=== PATIENT | female | born 1955 | race Caucasian/White ===

== ENCOUNTER 2016-11-24 17:49 | Outpatient (CLI) ==
[2016-04-05 14:20] VITALS: BMI 30.9
--- NOTE | 2016-11-25 08:02 | DI ---
EXAM: Radiographs, right foot HISTORY: Right foot pain. COMPARISON: None available. TECHNIQUE: Three views. FINDINGS: Bone mineralization is normal. There is no fracture or dislocation. The joint spaces ar e maintained although there is mild spurring at the talonavicular, fourth tarsal metatarsal and firs t metatarsal phalangeal joints. Moderate spurring seen off the calcaneus at the Achilles tendon ins ertion and plantar aponeurosis. No focal soft tissue abnormality is seen. IMPRESSION: 1. Mild osteoarthritis. 2. Moderate calcaneal spurs.
--- NOTE | 2016-11-25 08:07 | CT ---
EXAM: CT chest without contrast. HISTORY: Pleurodynia. COMPARISON: Chest radiograph 08/24/2012. TECHNIQUE: Multiple axial images of the chest were obtained without intravenous contrast. Images w ere reformatted in the sagittal and coronal planes. FINDINGS: Evaluation for lymphadenopathy is limited by lack of intravenous contrast. There are khuhsi cified mediastinal and hilar lymph nodes present. Calcified right thyroid nodule noted. Heart size is normal. Trace amount pericardial fluid may be present. Atherosclerotic calcifications noted in the aorta, great vessels and coronary arteries, greatest in the left anterior descending coronary a rtery. Ascending thoracic aorta measures up to 3.6 cm. Mild centrilobular emphysematous changes present bilaterally. Calcified granuloma noted in the righ t upper lobe. No consolidation, pleural effusion or pneumothorax identified. Respiratory motion do es limit evaluation for small nodules particularly in the perihilar regions. Limited images of the upper abdomen demonstrate benign fluid density enlargement of the left adrenal gland. Degenerative changes present in the spine. There are nondisplaced left anterolateral fourth and fif th rib fractures which demonstrate callus formation. IMPRESSION: 1. Healing or healed left anterolateral fourth and fifth rib fractures. 2. Mild emphysema. 3. Evidence of prior granulomatous disease.
== END 2016-11-24 17:50 | disposition home or self-care (01) ==
LOC: RAD 17:49
PROVIDERS: ATTEND Emergency Medicine
DX: R07.81 Pleurodynia (principal); M79.671 Pain in right foot

== ENCOUNTER 2016-11-27 15:27 | Outpatient (CLI) | payer OTHER ==
[2016-04-05 14:20] VITALS: BMI 30.9
[2016-11-27 15:45] LABS: BASOPHILS % (AUTO) 0.6 % (0.0-3.0); EOSINOPHILS # (AUTO) 0.2 K/ul (0.0-0.7); EOSINOPHILS % (AUTO) 2.9 % (0.0-7.0); HEMATOCRIT 42.7 % (37.0-47.0); IMMATURE GRANULOCYTE % (AUTO) 0.1 % (0.0-5.0); LYMPHOCYTES # (AUTO) 1.8 K/uL (0.60-3.4); LYMPHOCYTES % (AUTO) 26.5 (10.0-50.0); MEAN CORPUSCULAR HEMOGLOBIN 30.6 pg (27.0-31.0); MEAN CORPUSCULAR HGB CONC 32.8 (31.8-35.4); MEAN CORPUSCULAR VOLUME 93.4 fl (81.0-99.0); MONOCYTES # (AUTO) 0.6 K/uL (0.4-2.0); MONOCYTES % (AUTO) 8.5 (0-10); NEUTROPHILS # (AUTO) 4.2 K/ul (2.0-6.9); NEUTROPHILS % (AUTO) 61.4; PLATELET COUNT 250 10^3/uL (140-440); RED BLOOD COUNT 4.57 10^6/ul (4.20-5.40); WHITE BLOOD COUNT 6.91 K/ul (4.6-10.2)
[2016-11-27 16:41] LABS: ALBUMIN/GLOBULIN RATIO 1.18; ANION GAP 14.4; BILIRUBIN,TOTAL 0.22 mg/dL (0.00-1.20); BUN/CREATININE RATIO 19.23; CALCIUM 10.1 mg/dL (8.2-10.2); CHOL/HDL RATIO 2.7 (4.5-5.5); CREATININE 0.78 mg/dL (0.60-1.30); POTASSIUM 4.4 mmol/L (3.5-5.10); TOTAL PROTEIN 7.4 g/dL (5.8-8.1)
== END 2016-11-27 15:28 | disposition home or self-care (01) ==
LOC: LAB 15:27
PROVIDERS: ATTEND Emergency Medicine
DX: E78.5 Hyperlipidemia, unspecified (principal); I10 Essential (primary) hypertension
CPT/HCPCS: 36415; 80053; 80061; 84443; 85025

== ENCOUNTER 2016-12-18 15:40 | Outpatient (CLI) ==
[2016-04-05 14:20] VITALS: BMI 30.9
== END 2016-12-18 15:41 ==
LOC: AMBL 15:40
PROVIDERS: ATTEND Internal Medicine
DX: R40.4 Transient alteration of awareness (principal)

== ENCOUNTER 2017-01-12 12:02 | Outpatient (CLI) | payer OTHER ==
[2016-04-05 14:20] VITALS: BMI 30.9
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
== END 2017-01-12 12:03 | disposition home or self-care (01) ==
LOC: RAD 12:02
PROVIDERS: ATTEND Emergency Medicine
DX: M25.511 Pain in right shoulder (principal)

== ENCOUNTER 2017-02-05 06:39 | Outpatient (CLI) | payer OTHER ==
[2016-04-05 14:20] VITALS: BMI 30.9
[2017-02-05] MEDS: DOBUTAMINE 250 ML IV ONE (07:50)
[2017-02-05] MEDS: ATROPINE SULFATE PFS ONE (07:50)
--- NOTE | 2017-02-05 10:31 | NM ---
Cardiac Stress Test HISTORY: Shortness of breath. Neck 18 days. Hypertension. Dyslipidemia. Surgical clearance. COMPARISON: None of this type. TECHNIQUE: Resting: The patient was injected with 4.05 millicuries of 99m technetium Sestamibi (Cardiolite) int ravenously after which a "resting" SPECT study of the heart was performed. Stress: The patient was stressed pharmacologically with dobutamine and at the appropriate time injec tam with 24.2 millicuries of 99m technetium Sestamibi (Cardiolite) after which a "stress" SPECT study of the heart was performed. Gated images of the heart were also obtained to assess wall motion and c alculate ejection fraction. For details of the stress protocol employed, reference is made to the se espinosae report of the performing physician. FINDINGS: The stress perfusion images demonstrate decreased activity in the mid to basal anterolater al wall segment. The resting images demonstrate improved perfusion in this region. The resting perfu clara images demonstrate no evidence of significant redistribution/ischemia elsewhere. The left ventricular ejection fraction (LVEF) is 67%. IMPRESSION: 1. Left ventricular myocardial perfusion demonstrates findings suggestive of ischemia in the mid to basal anterolateral wall segment. 2. The left ventricular ejection fraction (LVEF) is 67%.
--- NOTE | 2017-02-08 09:18 | DOBSTECHST ---
Ordering Physician: ESTELLE MOORE Date of Test: 02/05/17 Reason for Examination: SURGICAL CLEARANCE, SOB, HYPERTENSION, DYSLIPIDEMIA Current Medications: ASPIRIN, LISINOPRIL, ACYCLOVIR, LIPITOR, LASIX, PROZAC, LORTAB Height: 64" Weight: 190 LBS Target Heart Rate: 135/159 ST Segment Stage Time HR BPM BP mmhg Rhythm +/- Up Down Comments/Symptoms Control Sitting 68 130/82 SR X NONE Dobutamine 250mg/D5W 5cmg/KG/mn 10cmg/KG/mn 3" 90 135/78 SR X NONE 15cmg/KG/mn 2" 109 140/70 SR X NONE 20cmg/KG/mn 2" 131 125/65 SR X NONE 25cmg/KG/mn 1:04 130 SR X NONE 30cmg/KG/mn 35cmg/KG/mn 40cmg/KG/mn Time: 3" HR B/P Time: 6" HR B/P Time: 8" HR B/P Recovery 111 118/68 Recovery 106 Recovery 90 Total Time: 8:04 Maximum Heart Rate Reached: 130 __ Interpretation: 98% OXYGEN SATURATION ON ROOM AIR AT REST 1. NO EVIDENCE OF ISCHEMIA BY ST-T WAVE 2. NO CHEST PAIN OR DISCOMFORT 3. NORMAL LEFT VENTRICULAR CONTRACTILITY--RESTING AND WITH DOBUTAMINE INFUSION SESTAMIBI TO FOLLOW MTDD
--- NOTE | 2017-02-08 09:22 | ECHOSTRESS ---
Date of Exam: 02/05/17 Ordering Physician: ESTELLE MOORE Reason for Echo: SURGICAL CLEARANCE, DOBUTAMINE STRESS TEST--NO ISCHEMIA M-Mode Normal Adult Results LV Dimensions Normal Adult Results AoV Opening excursions >1.6 LVEDD-base- 3.5-5.8 Ao root dimensions 2.0-3.7 LVESD-base- 3.1-4.6 L. Atrium dimensions 1.9-3.8 Post. Wall thickness 0.8-1.1 IV septum (thickness) 0.7-1.2 Post. Wall excursion 0.72-1.3 Septal motion Systolic motion R. Ventricular cavity 1.5-2.0 LVEF 60% Paradoxical septal wall motion 2-D: NORMAL LEFT VENTRICULAR CONTRACTILITY--RESTING AND WITH DOBUTAMINE INFUSION M-MODE: MV: AV: TV: PV: CHAMBER SIZE: WALL MOTION: NORMAL LEFT VENTRICULAR CONTRACTILITY--RESTING AND WITH DOBUTAMINE INFUSION PERICARDIUM: INTERPRETATION: 1. NORMAL LEFT VENTRICULAR CONTRACTILITY--RESTING AND WITH DOBUTAMINE INFUSION SESTAMIBI TO FOLLOW MTDD
== END 2017-02-05 06:40 | disposition home or self-care (01) ==
LOC: CAR 06:39
PROVIDERS: ATTEND Emergency Medicine
DX: Z01.818 Encounter for other preprocedural examination (principal); I10 Essential (primary) hypertension; E78.5 Hyperlipidemia, unspecified; R06.02 Shortness of breath

== ENCOUNTER 2017-03-03 20:34 | Outpatient (CLI) ==
[2016-04-05 14:20] VITALS: BMI 30.9
== END 2017-03-03 20:35 | disposition left against medical advice (07) ==
LOC: AMBL 20:34
PROVIDERS: ATTEND Internal Medicine Geriatric Medicine
DX: Z04.1 Encounter for examination and observation following transport accident (principal); V43.52XA Car driver injured in collision with other type car in traffic accident, initial encounter

== ENCOUNTER 2017-05-18 16:28 | Emergency (ER) ==
[2017-05-18 16:34] VITALS: TEMP 97.6; BMI 31.7
[2017-05-18] MEDS ORDERED: ZESTRIL PO STA (16:49)
--- NOTE | 2017-05-18 16:52 | ED.PDOC ---
General ED Provider: Dr. ALCIDES OCAMPO Chief Complaint: Medication Refill Stated Complaint: med refill Time Seen by Physician: 16:39 (vinny present at all times out of several meds but cant pay for meds ) Mode of Arrival: Walk-In Information Source: Patient Exam Limitations: No limitations Primary Care [facility] and Triage Documentation Reviewed and Agree: Yes Reviewed sepsis parameters & appropriate labs ordered?: Yes System Inflammatory Response Syndrome: Not Applicable Sepsis Protocol: For patient's 13 years and over: Temp is 96.8 and below OR 101 and greater Pulse >90 BPM Resp >20/minute Acutely Altered Mental Status Are patient's symptoms suggestive of a new infection, such as: -Pneumonia -Skin, Soft Tissue -Endocarditis -UTI -Bone, Joint Infection -Implantable Device -Acute Abdominal Infection -Wound Infection -Meningitis -Blood Stream Catheter Infection -Unknown System Inflammatory Response Syndrome: Not Applicable Cardiovascular Complaint Exam - Hypertension Complaint/Exam Onset/Duration: chronic Symptoms Are: Still present Timing: Constant Aggravating: Reports: None Alleviating: Reports: None Associated Signs and Symptoms: Denies: Chest pain, Vision changes, Anxiety, Recent stress, Headache, Numbness, Tingling, Weakness, Dizziness, Short of air, Swelling Related History: Reports: Similar episode Related Surgical History: Reports: None Cardiac Risk Factors: Reports: Hypertension, Smoking Recent Change in Medications: No A/V [place]: No Papilledema Present: No JVD Present: No Carotid Bruit Present: No Femoral Pulses Bounding: No Review of Systems - Review Of Systems Constitutional: Reports: No symptoms Eyes: Reports: No symptoms Ears, Nose, Mouth, Throat: Reports: No symptoms Respiratory: Reports: No symptoms Cardiac: Reports: No symptoms GI: Reports: No symptoms : Reports: No symptoms Musculoskeletal: Reports: No symptoms Skin: Reports: No symptoms Neurological: Reports: No symptoms Endocrine: Reports: No symptoms Hematologic/Lymphatic: Reports: No symptoms All Other Systems: Reviewed and Negative Past Medical History - Past Medical History Previously Healthy: Yes Endocrine: Reports: None Cardiovascular: Reports: Hypertension Respiratory: Reports: None Hematological: Reports: None Gastrointestinal: Reports: None Genitourinary: Reports: None Neuro/Psych: Reports: Depression Musculoskeletal: Reports: Arthritis, Back Pain Cancer: Reports: None Last Menstrual Period: n/a - Surgical History General Surgical History: Reports: Hysterectomy, (x 3) - Family History Family History: Reports: None - Social History Smoking Status: Current every day smoker Hx Substance Use: No (patient smells of etoh) Alcohol Screening: None Physical Exam - Physical Exam Appearance: Well-appearing, No pain distress, Well-nourished Eyes: GAIL, EOMI, Conjunctiva clear ENT: Ears normal, Nose normal, Oropharynx normal Respiratory: Airway patent, Breath sounds clear, Breath sounds equal, Respirations nonlabored Cardiovascular: RRR, Pulses normal, No rub, No murmur GI/: Soft, Nontender, No masses, Bowel sounds normal, No Organomegaly Musculoskeletal: Normal strength, ROM intact, No edema, No calf tenderness Skin: Warm, Dry, Normal color Neurological: Sensation intact, Motor intact, Reflexes intact, Cranial nerves intact, Alert, Oriented Psychiatric: Affect appropriate, Mood appropriate Critical Care Note - Critical Care Note Total Time (mins): 0 Course - Course Orders, Labs, Meds: Orders Category Date Time Status Lisinopril [Zestril] MEDS 05/18/17 16:49 Stat 40 mg PO ONCE STA Medications Discontinued Medications Generic Name Dose Route Start Last Admin Trade Name Freq PRN Reason Stop Dose Admin Lisinopril 40 mg 05/18/17 16:49 Zestril PO 05/18/17 16:50 ONCE STA Vital Signs: Temp Pulse Resp BP Pulse Ox 05/18/17 16:28 97.6 F 97 H 16 147/100 H 96 TALA Risk Score TALA Risk Score: Risk Score Odds of by 30D 0 0.1 (0.1-0.2) 1 0.3 (0.2-0.3) 2 0.4 (0.3-0.5) 3 0.7 (0.6-0.9) 4 1.2 (1.0-1.5) 5 2.2 (1.9-2.6) 6 3.0 (2.5-3.6) 7 4.8 (3.8-6.1) Departure - Departure Time of Disposition: 16:52 Disposition: HOME SELF-CARE Discharge Problem: Hypertension Qualifiers: Hypertension type: unspecified Qualified Code(s): I10 - Essential (primary) hypertension Instructions: Hypertension (ED) Condition: Good Pt referred to PMD for follow-up: Yes IPMP verified?: Yes Additional Instructions: Please call your Family Physician as soon as possible to schedule a follow-up appointment. Allergies/Adverse Reactions: Allergies divalproex sodium [From Depakote] Adverse Reaction (Verified 05/18/17 16:34) gabapentin [From Neurontin] Adverse Reaction (Verified 05/18/17 16:34) mirtazapine [From Remeron] Adverse Reaction (Verified 05/18/17 16:34) CT dye Allergy (Severe, Uncoded 11/23/16 09:30) Hives Patient will notify drugstore Home Medications: Ambulatory Orders Acyclovir 400 mg PO BID #10 tablet 04/05/16 Aspirin [Aspirin Chewable] 81 mg PO DAILY 04/05/16 Fluoxetine HCl [Prozac] 40 mg PO d 01/11/17 Disposition Discussed With: Patient
[2017-05-18 17:15] VITALS: BP 145/75
== END 2017-05-18 17:19 | disposition home or self-care (01) ==
LOC: ED 16:28
DX: I10 Essential (primary) hypertension (principal); Z76.0 Encounter for issue of repeat prescription; F17.210 Nicotine dependence, cigarettes, uncomplicated
CPT/HCPCS: 99283

== ENCOUNTER 2017-06-15 04:48 | Emergency (ER) ==
[2017-06-15 05:06] VITALS: TEMP 98.2; BMI 32.5
[2017-06-15] MEDS ORDERED: SODIUM CHLORIDE 1,000 ML IV STA (05:22)
--- NOTE | 2017-06-15 05:24 | ED.PDOC ---
General ED Provider: Dr. ANJELICA CHADWICK Chief Complaint: Abdominal Pain Stated Complaint: Patient is a 61 yaer old female who states that when she got up to go use the bathroom she go dizzy pale and diaphotetic. She then went back to her chair but started have epigastric tighgtness like a band. She also reports feeling nauseated. Time Seen by Physician: 05:22 Mode of Arrival: Ambulance Information Source: Patient [facility] Documentation Reviewed and Agree: Yes Reviewed sepsis parameters & appropriate labs ordered?: No System Inflammatory Response Syndrome: Not Applicable Sepsis Protocol: For patient's 13 years and over: Temp is 96.8 and below OR 101 and greater Pulse >90 BPM Resp >20/minute Acutely Altered Mental Status Are patient's symptoms suggestive of a new infection, such as: -Pneumonia -Skin, Soft Tissue -Endocarditis -UTI -Bone, Joint Infection -Implantable Device -Acute Abdominal Infection -Wound Infection -Meningitis -Blood Stream Catheter Infection -Unknown System Inflammatory Response Syndrome: Not Applicable GI Complaint Exam - Abdominal Pain Complaint/Exam Onset: Sudden Duration: 1 hour ago Symptoms Are: Resolved Initial Severity: Severe Current Severity: None Location of Pain: Epigastric Character: Reports: Sharp (tightness and pressure ) Aggravating: Reports: Position Alleviating: Reports: Rest Associated Signs and Symptoms: Reports: Diaphoresis, Dizziness AAA Risk Factors: Reports: None Cardiac Risk Factors: Reports: None Review of Systems - Review Of Systems Constitutional: Reports: Diaphoresis, Sweats Eyes: Reports: No symptoms Ears, Nose, Mouth, Throat: Reports: No symptoms Respiratory: Reports: No symptoms Cardiac: Reports: Lightheadedness GI: Reports: Abdominal pain, Nausea : Reports: No symptoms Musculoskeletal: Reports: No symptoms Skin: Reports: No symptoms Neurological: Reports: Anxiety Endocrine: Reports: No symptoms Hematologic/Lymphatic: Reports: No symptoms All Other Systems: Reviewed and Negative Past Medical History - Past Medical History Previously Healthy: Yes Endocrine: Reports: None Cardiovascular: Reports: Hypertension Respiratory: Reports: None Hematological: Reports: None Gastrointestinal: Reports: None Genitourinary: Reports: None Neuro/Psych: Reports: Depression Musculoskeletal: Reports: Arthritis, Back Pain Cancer: Reports: None Last Menstrual Period: PT HAS HAD A HYSTERECTOMY Other Pertinent Past Medical History: Pelvic wall hernia - Surgical History General Surgical History: Reports: Hysterectomy, (x 3) - Family History Family History: Reports: None - Social History Smoking Status: Current every day smoker, Light tobacco smoker Hx Substance Use: Yes (ALCOHOL IN THE PAST) Alcohol Screening: None - Immunizations Tetanus Shot up to Date: Yes Physical Exam - Physical Exam Appearance: Ill-appearing Ill-appearing: Moderate Pain Distress: None Neck: Supple Respiratory: Airway patent, Breath sounds clear, Breath sounds equal, Respirations nonlabored Cardiovascular: RRR, Pulses normal, No rub, No murmur GI/: Soft, Tender Musculoskeletal: Normal strength, ROM intact, No edema, No calf tenderness Skin: Warm, Dry, Normal color Neurological: Sensation intact, Motor intact, Reflexes intact, Cranial nerves intact, Alert, Oriented Psychiatric: Anxious Interpretation - Radiology Interpretation Radiology Interpretation By: Radiologist Radiology Results: Positive Exam Interpreted: CT Scan (pelvic wall hernia no strangulation ) - EKG Interpretation Time of EKG #1: 05:32 Rate: Normal Rhythm: Sinus Ectopy: None [place]: [place] Interpretation: Possible left atrial enlargement. Critical Care Note - Critical Care Note Total Time (mins): 0 Course - Course Hematology/Chemistry: 06/15/17 05:34 06/15/17 05:34 Orders, Labs, Meds: Lab Review 06/15/17 06/15/17 05:34 05:34 WBC 9.26 RBC 4.02 L Hgb 12.2 Hct 36.0 L MCV 89.6 MCH 30.3 MCHC 33.9 RDW Coeff of Guilherme 14.0 Plt Count 187 Immature Gran % (Auto) 0.3 Neut % (Auto) 81.4 Lymph % (Auto) 10.5 [place] % (Auto) 5.8 Eos % (Auto) 1.8 Baso % (Auto) 0.2 Immature Gran # (Auto) 0.0 Neut # 7.5 H Lymph # 1.0 [place] # 0.5 Eos # 0.2 Baso # 0.0 Sodium 141 Potassium 4.4 Chloride 106 Carbon Dioxide 25 Anion Gap 14.4 BUN 29 H Creatinine 0.78 Estimated GFR (MDRD) 75.00 BUN/Creatinine Ratio 37.17 Glucose 125 H Calcium 9.7 Total Bilirubin < 0.3 AST 14 L ALT 12 Alkaline Phosphatase 84 Total Creatine Kinase 53 Troponin I < 0.0100 Total Protein 6.4 Albumin 3.5 Globulin 2.9 Albumin/Globulin Ratio 1.21 Amylase 52 Lipase 43 Orders Category Date Time Status EKG-(ED ONLY) Stat CARDIO 06/15/17 05:20 Ordered Orthostatic [ED ORTHOSTATIC VITAL SIGNS] .ONCE EMERGENCY 06/15/17 05:20 Active AMYLASE Stat LAB 06/15/17 05:34 Received CBC W/ AUTO DIFF Stat LAB 06/15/17 05:34 Completed COMPREHENSIVE METABOLIC PANEL Stat LAB 06/15/17 05:34 Received CREATINE KINASE Stat LAB 06/15/17 05:34 Received LIPASE Stat LAB 06/15/17 05:34 Received TROPONIN I Stat LAB 06/15/17 05:34 Received UA [URINALYSIS C & S IF INDICATED] Stat LAB 06/15/17 05:23 Uncollected Sodium Chloride 0.9% [Sodium Chloride] 1,000 ml MEDS 06/15/17 05:[address] ABDOMEN/PELVIS WO CONTRAST Stat RADS 06/15/17 05:48 Ordered Medications Discontinued Medications Generic Name Dose Route Start Last Admin Trade Name Freq PRN Reason Stop Dose Admin Sodium Chloride 1,000 mls @ 1,000 mls/hr 06/15/17 05:22 06/15/17 05:25 Sodium Chloride IV 06/15/17 06:21 1,000 mls/hr BOLUS STA Administration Vital Signs: Temp Pulse Resp BP Pulse Ox 06/15/17 05:45 115 H 132/76 06/15/17 05:44 96 H 119/77 06/15/17 05:43 83 96/69 06/15/17 04:51 98.2 F 81 24 89/68 L 95 Departure - Departure Time of Disposition: 06:28 Disposition: HOME SELF-CARE Discharge Problem: Abdominal pain, Vasovagal near syncope Instructions: Syncope (ED), Hypotension (ED) Condition: Fair Pt referred to PMD for follow-up: Yes IPMP verified?: No Additional Instructions: Push fluids Hold Lasix for the next 3 days Follow up with Your pCP in 3 days return if worse. Allergies/Adverse Reactions: Allergies divalproex sodium [From Depakote] Adverse Reaction (Verified 06/15/17 05:06) gabapentin [From Neurontin] Adverse Reaction (Verified 06/15/17 05:06) mirtazapine [From Remeron] Adverse Reaction (Verified 06/15/17 05:06) CT dye Allergy (Severe, Uncoded 06/15/17 05:06) Hives Patient will notify drugstore Home Medications: Ambulatory Orders Acyclovir 400 mg PO BID #10 tablet 04/05/16 Aspirin [Aspirin Chewable] 81 mg PO DAILY 04/05/16 Fluoxetine HCl [Prozac] 40 mg PO d 01/11/17 Ibuprofen 800 mg PO Q6H PRN 06/15/17 Disposition Discussed With: Patient
[2017-06-15 05:55] VITALS: BP 132/76
--- NOTE | 2017-06-15 06:21 | CT ---
EXAM: CT of the abdomen and pelvis without contrast. HISTORY: Epigastric pain radiating to back. Surgical history includes section, hysterectomy and appendectomy. PROCEDURE: Contiguous axial CT images of the abdomen and pelvis without contrast with coronal and sa gittal reformats. FINDINGS: The liver, gallbladder, pancreas, spleen and kidneys are normal in appearance. No nephrolit hiasis, ureterolithiasis or hydronephrosis. There are bilateral benign adrenal adenomas measuring up to 3 cm. The abdominal aorta is within normal limits in diameter. The appendix is surgically absent. There is an anterior pelvic wall hernia measuring 1.8 x 5.5 cm containing a short segment of small ben wel with no evidence of obstruction or incarceration. There is minimal diverticulosis of the colon wi th no evidence of diverticulitis. No free fluid or free air in the abdomen or pelvis. The bladder is adequately filled with no abnormality identified. The uterus is surgically absent. There are phleb oliths in the lower pelvis. There are degenerative changes in the spine. Impression: Diverticulosis of the colon with no evidence of diverticulitis. Anterior pelvic wall hernia as described. Hysterectomy.
== END 2017-06-15 06:39 | disposition home or self-care (01) ==
LOC: ED 04:48
DX: R10.13 Epigastric pain (principal); R55 Syncope and collapse; F17.210 Nicotine dependence, cigarettes, uncomplicated; R42 Dizziness and giddiness; R11.0 Nausea
CPT/HCPCS: 36415; 80053; 81001; 82150; 82550; 83690; 84484; 85025; 87086; 93005; 93010; 99284

== ENCOUNTER 2017-07-22 17:17 | Emergency (ER) ==
[2017-07-22 17:30] VITALS: BP 169/101; TEMP 98.4; BMI 35.6
[2017-07-22] MEDS ORDERED: MORPHINE 2 MG/ML SYRINGE IM STA (17:43)
[2017-07-22] MEDS ORDERED: ZOFRAN 4 MG/2 ML IM STA (17:43)
[2017-07-22] MEDS ORDERED: DECADRON 4 MG/ML SDV IM STA (17:44)
--- NOTE | 2017-07-22 17:47 | ED.PDOC ---
General ED Provider: Dr. ALCIDES OCAMPO Chief Complaint: Headache Stated Complaint: HEADACHE Time Seen by Physician: 17:19 (PAIN STARTED TODAY ) Mode of Arrival: Walk-In Information Source: Patient Exam Limitations: No limitations [facility] and Triage Documentation Reviewed and Agree: Yes (NOTRAUMA SEEN WITH JENNIFER LEON AT ALL TIMES ) Reviewed sepsis parameters & appropriate labs ordered?: Yes System Inflammatory Response Syndrome: Not Applicable Sepsis Protocol: For patient's 13 years and over: Temp is 96.8 and below OR 101 and greater Pulse >90 BPM Resp >20/minute Acutely Altered Mental Status Are patient's symptoms suggestive of a new infection, such as: -Pneumonia -Skin, Soft Tissue -Endocarditis -UTI -Bone, Joint Infection -Implantable Device -Acute Abdominal Infection -Wound Infection -Meningitis -Blood Stream Catheter Infection -Unknown System Inflammatory Response Syndrome: Not Applicable Review of Systems - Review Of Systems Constitutional: Reports: No symptoms Eyes: Reports: No symptoms Ears, Nose, Mouth, Throat: Reports: No symptoms Respiratory: Reports: No symptoms Cardiac: Reports: No symptoms GI: Reports: No symptoms : Reports: No symptoms Musculoskeletal: Reports: No symptoms Skin: Reports: No symptoms Neurological: Reports: Headache Endocrine: Reports: No symptoms Hematologic/Lymphatic: Reports: No symptoms All Other Systems: Reviewed and Negative Past Medical History - Past Medical History Previously Healthy: Yes Endocrine: Reports: None Cardiovascular: Reports: Hypertension Respiratory: Reports: None Hematological: Reports: None Gastrointestinal: Reports: None Genitourinary: Reports: None Neuro/Psych: Reports: Depression Musculoskeletal: Reports: Arthritis, Back Pain Cancer: Reports: None Last Menstrual Period: hysterectomy Other Pertinent Past Medical History: Pelvic wall hernia - Surgical History General Surgical History: Reports: Hysterectomy, (x 3) - Family History Family History: Reports: None - Social History Smoking Status: Current every day smoker, Light tobacco smoker Hx Substance Use: Yes (ALCOHOL IN THE PAST) Alcohol Screening: None Physical Exam - Physical Exam Appearance: Ill-appearing Ill-appearing: Mild Pain Distress: Mild Eyes: GAIL, EOMI, Conjunctiva clear ENT: Ears normal, Nose normal, Oropharynx normal Respiratory: Airway patent, Breath sounds clear, Breath sounds equal, Respirations nonlabored Cardiovascular: RRR, Pulses normal, No rub, No murmur GI/: Soft, Nontender, No masses, Bowel sounds normal, No Organomegaly Musculoskeletal: Normal strength, ROM intact, No edema, No calf tenderness Skin: Warm, Dry, Normal color Neurological: Sensation intact, Motor intact, Reflexes intact, Cranial nerves intact, Alert, Oriented Psychiatric: Affect appropriate, Mood appropriate Interpretation - Radiology Interpretation Radiology Interpretation By: Radiologist Critical Care Note - Critical Care Note Total Time (mins): 0 Course - Course Hematology/Chemistry: 07/22/17 18:00 Orders, Labs, Meds: Lab Review 07/22/17 07/22/17 17:46 18:00 WBC 6.72 RBC 4.03 L Hgb 12.2 Hct 36.2 L MCV 89.8 MCH 30.3 MCHC 33.7 RDW Coeff of Guilherme 14.0 Plt Count 198 Immature Gran % (Auto) 0.3 Neut % (Auto) 51.5 Lymph % (Auto) 32.9 [place] % (Auto) 10.4 H Eos % (Auto) 4.2 Baso % (Auto) 0.7 Immature Gran # (Auto) 0.0 Neut # (Auto) 3.5 Lymph # (Auto) 2.2 [place] # (Auto) 0.7 Eos # (Auto) 0.3 Baso # (Auto) 0.1 Influ A Molecular Assay Negative by naat Influ B Molecular Assay Negative by naat Orders Category Date Time Status EKG-(ED ONLY) Stat CARDIO 07/22/17 17:43 Completed CBC W/ AUTO DIFF Stat LAB 07/22/17 18:00 Completed COMPREHENSIVE METABOLIC PANEL Stat LAB 07/22/17 18:00 Received CREATINE KINASE Stat LAB 07/22/17 18:00 Received ESR Stat LAB 07/22/17 17:44 Ordered FLU A/B MOLECULAR Stat LAB 07/22/17 17:46 Completed PROCALCITONIN Stat LAB 07/22/17 18:00 Received TROPONIN I Stat LAB 07/22/17 18:00 Received Dexamethasone 4 mg/ml Inj [Decadron 4 mg/ml Sdv] MEDS 07/22/17 17:44 Discontinued 8 mg IM ONCE STA Morphine Sulfate [Morphine 2 mg/ml Syringe] MEDS 07/22/17 17:43 Discontinued 4 mg IM ONCE STA Morphine Sulfate [Morphine 4 mg/ml Syringe] MEDS 07/22/17 18:06 Discontinued 4 mg .ROUTE .STK-MED ONE Ondansetron HCl/Pf [Zofran 4 mg/2 ml] MEDS 07/22/17 17:43 Discontinued 4 mg IM ONCE STA CT HEAD W/O CONTRAST Stat RADS 07/22/17 17:42 Taken Medications Discontinued Medications Generic Name Dose Route Start Last Admin Trade Name Jarod PRN Reason Stop Dose Admin Dexamethasone Sodium Phosphate 8 mg 07/22/17 17:44 07/22/17 18:17 Decadron 4 Mg/Ml Sdv IM 07/22/17 17:45 8 mg ONCE STA Administration Morphine Sulfate 4 mg 07/22/17 17:43 07/22/17 18:20 Morphine 2 Mg/Ml Syringe IM 07/22/17 17:44 Not Given ONCE STA Ondansetron HCl 4 mg 07/22/17 17:43 07/22/17 18:18 Zofran 4 Mg/2 Ml IM 07/22/17 17:44 4 mg ONCE STA Administration Vital Signs: Temp Pulse Resp BP Pulse Ox 07/22/17 17:19 98.4 F 97 H 20 169/101 H 95 Departure - Departure Time of Disposition: 19:00 Disposition: HOME SELF-CARE Discharge Problem: Headache Instructions: Acute Headache (DC) Condition: Good Pt referred to PMD for follow-up: Yes IPMP verified?: No Additional Instructions: Please call your Family Physician as soon as possible to schedule a follow-up appointment. Allergies/Adverse Reactions: Allergies divalproex sodium [From Depakote] Adverse Reaction (Verified 07/22/17 17:31) gabapentin [From Neurontin] Adverse Reaction (Verified 07/22/17 17:31) mirtazapine [From Remeron] Adverse Reaction (Verified 07/22/17 17:31) CT dye Allergy (Severe, Uncoded 07/22/17 17:31) Hives Patient will notify drugstore Home Medications: Ambulatory Orders Aspirin [Aspirin Chewable] 81 mg PO DAILY 04/05/16 Fluoxetine HCl [Prozac] 40 mg PO d 01/11/17 Ibuprofen 800 mg PO Q6H PRN 06/15/17 Acyclovir 400 mg PO DAILY 07/22/17 Disposition Discussed With: Patient, Family
[2017-07-22] MEDS ORDERED: MORPHINE 4 MG/ML SYRINGE ONE (18:06)
--- NOTE | 2017-07-22 18:31 | CT ---
EXAM: CT head without contrast HISTORY: New onset headache COMPARISON: none TECHNIQUE: Serial axial images of the brain were obtained from the skull base to the vertex without IV contrast. FINDINGS: The ventricles, cisterns and sulci demonstrate mild generalized volume loss. The boudreaux-whit e matter junction is well maintained. No midline shift or mass is identified. There is no abnormal intra or extra-axial fluid collection. The paranasal sinuses and mastoid air cells are clear. The o sseous calvarium is intact. IMPRESSION: No acute intracranial abnormality or hemorrhage. If further evaluation is clinically ind icated, MRI may be obtained.
== END 2017-07-22 19:30 | disposition home or self-care (01) ==
LOC: ED 17:17
DX: R51 Headache (principal); F17.210 Nicotine dependence, cigarettes, uncomplicated
CPT/HCPCS: 36415; 80053; 82550; 82553; 84145; 84484; 85025; 85651; 87502; 93005; 93010; 96372; 99284

== ENCOUNTER 2017-07-28 20:02 | Outpatient (CLI) | END 2017-07-28 20:03 | disposition short-term general hospital (02) | LOC: AMBL 20:02 | PROVIDERS: ATTEND Family Medicine | DX: R42 Dizziness and giddiness (principal); R51 Headache ==

== ENCOUNTER 2018-01-14 15:38 | Outpatient (CLI) ==
--- NOTE | 2018-01-14 16:24 | DI ---
EXAM: Single view of the chest and four views of the left ribs. History: Chest pain and left knee pain. Comparison: Chest radiograph 08/24/2012, chest CT 11/24/2016 Findings: Heart size is within normal limits. No focal consolidation. No appreciable pleural fluid and no pneumothorax. There is central bronchial wall thickening. Calcified granulomas again seen w ithin the thorax. No acute displaced rib fractures identified. Impression: 1. Bronchial wall thickening but no evidence for pneumonia. 2. No rib fractures
== END 2018-01-14 15:39 | disposition home or self-care (01) ==
LOC: RAD 15:38
PROVIDERS: ATTEND Family Medicine
DX: R07.81 Pleurodynia (principal)

== ENCOUNTER 2018-05-27 12:23 | Emergency (ER) ==
[2018-05-27 12:28] VITALS: BP 162/87; TEMP 98.3; BMI 39.4
--- NOTE | 2018-05-27 16:04 | ED.PDOC ---
General ED Provider: Dr. CISCO ARGUETA Chief Complaint: Ankle Pain/Injury Stated Complaint: TWISTED ANKLE ,FELL Time Seen by Physician: 16:04 Mode of Arrival: Wheelchair Information Source: Patient Exam Limitations: No limitations Primary Care Provider: FUNMILAYO CASTANON Nursing and Triage Documentation Reviewed and Agree: Yes Does patient meet sepsis criteria?: No System Inflammatory Response Syndrome: Not Applicable Sepsis Protocol: For patient's 13 years and over: Temp is 96.8 and below OR 101 and greater Pulse >90 BPM Resp >20/minute Acutely Altered Mental Status Are patient's symptoms suggestive of a new infection, such as: -Pneumonia -Skin, Soft Tissue -Endocarditis -UTI -Bone, Joint Infection -Implantable Device -Acute Abdominal Infection -Wound Infection -Meningitis -Blood Stream Catheter Infection -Unknown Trauma/Injury Complaint Exam - Trauma Complaint/Exam Location of Pain or Injury: Reports: LLE Mechanism of Injury: Reports: Fall Symptoms Are: Still present Timing of Treatment: Immediate Initial Severity: Moderate Current Severity: Mild Character: Reports: Aching Aggravating: Reports: Movement Alleviating: Reports: Rest Associated Signs and Symptoms: Reports: Swelling : No Penetrating Injury Risk Factors: Reports: None Skin Findings: Present: Normal findings Differential Diagnoses: Contusions, Fracture, Dislocation, Sprain, Strain Review of Systems - Review Of Systems Constitutional: Reports: No symptoms Eyes: Reports: No symptoms Ears, Nose, Mouth, Throat: Reports: No symptoms Respiratory: Reports: No symptoms Cardiac: Reports: No symptoms GI: Reports: No symptoms : Reports: No symptoms Musculoskeletal: Reports: No symptoms Skin: Reports: No symptoms Neurological: Reports: No symptoms Endocrine: Reports: No symptoms Hematologic/Lymphatic: Reports: No symptoms All Other Systems: Reviewed and Negative Past Medical History - Past Medical History Previously Healthy: Yes Endocrine: Reports: None Cardiovascular: Reports: Hypertension Respiratory: Reports: None Hematological: Reports: None Gastrointestinal: Reports: None Genitourinary: Reports: None Neuro/Psych: Reports: Depression Musculoskeletal: Reports: Arthritis, Back Pain Cancer: Reports: None Last Menstrual Period: n/a Other Pertinent Past Medical History: Pelvic wall hernia - Surgical History General Surgical History: Reports: Hysterectomy, (x 3) - Family History Family History: Reports: None - Social History Smoking Status: Current every day smoker, Light tobacco smoker Hx Substance Use: Yes (ALCOHOL IN THE PAST) Alcohol Screening: None Physical Exam - Physical Exam Appearance: Well-appearing Ill-appearing: None Pain Distress: None Eyes: GAIL ENT: Ears normal Neck: Supple Respiratory: Airway patent Cardiovascular: RRR, Pulses normal GI/: Soft Musculoskeletal: Normal strength Skin: Warm Neurological: Sensation intact Procedures - Splinting Location: left lower extremity Pre-Made Type: orthoglass Hand-Made Type: Orthoglass Splint: Gutter splint Pre-Proc Neuro Vasc Exam: Normal Post-Proc Neuro Vasc Exam: Normal Re-Evaluation - Re-Evaluation Time of Re-Evaluation: 16:09 Vital Signs Stable: Yes Appearance: NAD Lungs: Clear Skin: Warm and Dry Neuro: Alert and Oriented X3 CV: RRR Critical Care Note - Critical Care Note Total Time (mins): 0 Course - Course Orders, Labs, Meds: Orders Category Date Time Status Ketorolac Tromethamine [Toradol] MEDS 05/27/18 16:45 Discontinued 30 mg IM ONCE STA ANKLE, LEFT MIN 3 VIEWS Stat RADS 05/27/18 16:11 Completed TIBIA/FIBULA, LEFT 2 VIEWS Stat RADS 05/27/18 16:11 Completed Medications Discontinued Medications Generic Name Dose Route Start Last Admin Trade Name Freq PRN Reason Stop Dose Admin Ketorolac Tromethamine 30 mg 05/27/18 16:45 05/27/18 17:19 Toradol IM 05/27/18 16:46 Not Given ONCE STA Vital Signs: Temp Pulse Resp BP Pulse Ox 05/27/18 12:26 98.3 F 126 H 20 162/87 H 96 Departure - Departure Time of Disposition: 17:44 Disposition: HOME SELF-CARE Discharge Problem: Ankle pain Condition: Good Pt referred to PMD for follow-up: No (Pt requesting to chose her own oerthopedic doctor p discharge from ER) IPMP verified?: No Allergies/Adverse Reactions: Allergies divalproex sodium [From Depakote] Adverse Reaction (Verified 05/27/18 12:29) gabapentin [From Neurontin] Adverse Reaction (Verified 05/27/18 12:29) mirtazapine [From Remeron] Adverse Reaction (Verified 05/27/18 12:29) CT dye Allergy (Severe, Uncoded 07/22/17 17:31) Hives Patient will notify drugstore Home Medications: Ambulatory Orders Aspirin [Aspirin Chewable] 81 mg PO DAILY 04/05/16 Hydroxyzine Pamoate [Vistaril] 50 mg PO TID PRN 01/14/18 Quetiapine Fumarate [Seroquel] 50 mg PO BEDTIME 01/14/18 Pt. Stabilized Within Hospital's Capabilities/Transferred To: yes Disposition Discussed With: Patient
--- NOTE | 2018-05-27 16:42 | DI ---
EXAM: Left ankle. Three-view HISTORY: Sprain COMPARISON: None FINDINGS: Mildly displaced, obliquely lated fracture distal fibula. No acute fracture of the tibia identified. Several well marginated ossifications near the distal tibia may be due to old trauma or ossification centers. Ankle mortise symmetric. Small to moderate plantar calcaneal spur. Mild post erior calcaneal enthesopathy. Soft tissue swelling about the lateral ankle. IMPERSSION: Fracture of the distal fibula.
--- NOTE | 2018-05-27 16:43 | DI ---
Exam: Two views of the left tibia and fibula. Comparison: None available. Reason for exam: Sprain. FINDINGS: There is a comminuted fracture of the distal fibula. The talar dome appears intact. The tibia appears grossly unremarkable. Impression: Comminuted obliquely oriented fracture of the distal fibula
[2018-05-27] MEDS ORDERED: TORADOL IM STA (16:45)
== END 2018-05-27 18:23 | disposition home or self-care (01) ==
LOC: ED 12:23
DX: M25.572 Pain in left ankle and joints of left foot (principal); X50.1XXA Overexertion from prolonged static or awkward postures, initial encounter; W19.XXXA Unspecified fall, initial encounter; F17.210 Nicotine dependence, cigarettes, uncomplicated
CPT/HCPCS: 99283

== ENCOUNTER 2018-06-02 14:46 | Outpatient (CLI) | payer OTHER | END 2018-06-02 14:47 | disposition home or self-care (01) | LOC: RHC-LAB 14:46 | PROVIDERS: ATTEND Nurse Practitioner Family | DX: I10 Essential (primary) hypertension (principal); Z01.818 Encounter for other preprocedural examination | CPT/HCPCS: 36415; 80053; 85025; 93005; 93010 ==

== ENCOUNTER 2018-08-09 10:01 | Outpatient (CLI) ==
--- NOTE | 2018-08-09 11:13 | DI ---
EXAM: Left ankle. Three-view HISTORY: Left ankle pain COMPARISON: 05/27/2018 FINDINGS: Status post ORIF of a left fibular fracture. Hardware appears intact. Fracture line shane ins minimally visible. No fracture of the tibia identified. Well-marginated ossifications near the medial malleolus may be due to old trauma or ossification centers. Ankle mortise symmetric. Small t o moderate plantar and posterior calcaneal spurs. Mild osteoarthritis midfoot with dorsal spurring. IMPERSSION: 1. Status post ORIF distal fibula. 2. Calcaneal spurring. 3. Osteoarthritis.
== END 2018-08-09 10:02 | disposition home or self-care (01) ==
LOC: RAD 10:01
DX: M25.572 Pain in left ankle and joints of left foot (principal)

== ENCOUNTER 2018-09-12 13:53 | Outpatient (CLI) ==
--- NOTE | 2018-09-12 14:15 | DI ---
EXAM: Right ankle. Three-view HISTORY: Bilateral ankle pain COMPARISON: None FINDINGS: No fracture or dislocation. Ankle mortise symmetric. Several ossifications about the med ial malleolus may be due to old trauma or ossification centers. Moderate plantar and posterior calca duane spurs No focal soft tissue abnormality. IMPERSSION: 1. No fracture or dislocation. 2. Calcaneal spurs.
--- NOTE | 2018-09-12 14:15 | DI ---
EXAM: Three views of the left ankle. History: Left ankle pain. Comparison: Left ankle radiograph 08/09/2018 Findings: No acute fracture or dislocation. Calcaneal enthesiopathy again noted. Stable hardware w ithin the distal fibula. Healing fracture of the distal fibula with increased callous formation. No change in the polyarticular joint space narrowing. Impression: No acute osseous abnormality. Healing fracture of the distal fibula.
== END 2018-09-12 13:54 | disposition home or self-care (01) ==
LOC: RAD 13:53
PROVIDERS: ATTEND Orthopaedic Surgery
DX: M25.572 Pain in left ankle and joints of left foot (principal); M25.571 Pain in right ankle and joints of right foot